=== PATIENT | female | born 1995 | race Caucasian/White ===

== ENCOUNTER 2017-08-29 21:51 | Emergency (ER) | payer SELFPAY | END 2017-08-29 22:15 | disposition left against medical advice (07) | LOC: ER 22:15 | DX: A64 Unspecified sexually transmitted disease (principal); Z53.21 Procedure and treatment not carried out due to patient leaving prior to being seen by health care provider ==

== ENCOUNTER 2019-04-18 15:59 | Emergency (ER) | payer OTHER ==
[~2019-04-18] VITALS: Ht 157.5 cm; Wt 54.0 kg
--- NOTE | 2019-04-18 16:25 | PHYS DOC ---
Past Medical History Past Medical History: No Pertinent History Smoking: Cigarettes Adult General Chief Complaint Chief Complaint: ABDOMINAL PAIN IN HPI HPI Patient is a previously healthy, 23-year-old female, 3, para 1, aborta 1, resolved he was 03/06/19, who presents to the emergency department for evaluation. She states the past 2-3 days she has had some lower abdominal cramping. She took a positive test at home about one week ago, but has not yet seen a physician. However, she has a scheduled appointment coming up next Thursday with an FORMS BUILDER here. She states she developed some abdominal cramping and presents to the emergency department for evaluation of this. She has had no vaginal bleeding or discharge, dizziness, lightheadedness, or urinary symptoms there are no alleviating or exacerbating factors to her symptoms. She reports her blood type is O-. Review of Systems Review of Systems Constitutional: Denies fever or chills [] Eyes: Denies change in visual acuity, redness, or eye pain [] HENT: Denies nasal congestion or sore throat [] Respiratory: Denies cough or shortness of breath [] Cardiovascular: The patient denies any shortness of breath, chest pain, palpitations, or orthopnea [] GI: Denies nausea, vomiting, bloody stools or diarrhea [] : Denies dysuria or hematuria [] Musculoskeletal: Denies back pain or joint pain [] Integument: Denies rash or skin lesions [] Neurologic: Denies headache, focal weakness or sensory changes [] Endocrine: Denies polyuria or polydipsia [] All other systems were reviewed and found to be within normal limits, except as documented in this note. Allergies Allergies Allergies Coded Allergies Type Severity Reaction Last Updated Verified Latex, Natural Rubber Allergy Unknown 04/18/19 Yes amoxicillin Allergy Unknown 04/18/19 Yes clavulanic acid Allergy Unknown 04/18/19 Yes shellfish derived Allergy Unknown 04/18/19 Yes Physical Exam Physical Exam PHYSICAL EXAM: CONSTITUTIONAL: Well developed, well nourished HEAD: normocephalic, atraumatic EENT: PERRL, EOMI. Conjunctivae normal color, sclerae non-icteric; moist mucous membranes. NECK: Supple, non-tender; no meningismus. LUNGS: Lungs CTA, breathing even and unlabored. Normal air movement. HEART: Regular rate and rhythm, no murmur CHEST: No deformity; non-tender ABDOMEN: The abdomen is soft, there is very mild suprapubic tenderness to palpa tion, the remainder the abdomen is soft and non-tender, no masses or bruits. EXTREM: Normal ROM; no deformity, no calf tenderness. Normal pulses palpable in all extremities. There is no pedal edema. SKIN: No rash; no diaphoresis NEURO: Alert; normal speech and cognition; CN's grossly intact; strength grossly intact without focal deficit. BACK: No CVA TTP. PELVIC EXAM: Normal external genitalia. There is a trace amount of clear white vaginal discharge, the cervix otherwise appears unremarkable, there is no bleeding, the cervix is closed. There is no definite cervical motion tenderness or focal adnexal tenderness. Exam was performed in the presence of the patient's nurse, Haley. Current Patient Data Vital Signs Vital Signs Date Time Temp Pulse Resp B/P (MAP) Pulse Ox O2 Delivery O2 Flow Rate FiO2 04/18/19 17:13 103 109/70 (83) 99 Room Air 04/18/19 16:05 98.2 17 98.2 Lab Values Laboratory Tests Test 04/18/19 16:30 04/18/19 17:19 White Blood Count 11.6 x10^3/uL (4.0-11.0) H Red Blood Count 4.64 x10^6/uL (3.50-5.40) Hemoglobin 14.9 g/dL (12.0-15.5) Hematocrit 43.5 % (36.0-47.0) Mean Corpuscular Volume 94 fL (79-100) Mean Corpuscular Hemoglobin 32 pg (25-35) Mean Corpuscular Hemoglobin Concent 34 g/dL (31-37) Red Cell Distribution Width 12.5 % (11.5-14.5) Platelet Count 290 x10^3/uL (140-400) Neutrophils (%) (Auto) 81 % (31-73) H Lymphocytes (%) (Auto) 13 % (24-48) L Monocytes (%) (Auto) 5 % (0-9) Eosinophils (%) (Auto) 0 % (0-3) Basophils (%) (Auto) 0 % (0-3) Neutrophils # (Auto) 9.4 x10^3/uL (1.8-7.7) H Lymphocytes # (Auto) 1.5 x10^3/uL (1.0-4.8) Monocytes # (Auto) 0.6 x10^3/uL (0.0-1.1) Eosinophils # (Auto) 0.0 x10^3/uL (0.0-0.7) Basophils # (Auto) 0.0 x10^3/uL (0.0-0.2) Maternal Serum HCG Beta Subunit 2189 mIU/mL (0-5) H Sodium Level 140 mmol/L (136-145) Potassium Level 3.8 mmol/L (3.5-5.1) Chloride Level 104 mmol/L (98-107) Carbon Dioxide Level 26 mmol/L (21-32) Anion Gap 10 (6-14) Blood Urea Nitrogen 7 mg/dL (7-20) Creatinine 0.6 mg/dL (0.6-1.0) Estimated GFR (Cockcroft-Gault) 126.2 BUN/Creatinine Ratio 12 (6-20) Glucose Level 100 mg/dL (70-99) H Calcium Level 9.4 mg/dL (8.5-10.1) Total Bilirubin 0.6 mg/dL (0.2-1.0) Aspartate Amino Transferase (AST) 19 U/L (15-37) Alanine Aminotransferase (ALT) 18 U/L (14-59) Alkaline Phosphatase 68 U/L (46-116) Total Protein 8.2 g/dL (6.4-8.2) Albumin 4.5 g/dL (3.4-5.0) Albumin/Globulin Ratio 1.2 (1.0-1.7) POC Urine HCG, Qualitative Hcg positive (Negative) Laboratory Tests 04/18/19 16:30 Laboratory Tests 04/18/19 16:30 Microbiology 04/18/19 Wet Prep - Final, Complete EKG EKG [] Radiology/Procedures Radiology/Procedures PROCEDURE: OB <14 WKS W/TV Exam: Ultrasound OB less than 14 weeks Indication: Pelvic pain Technique: Real-time grayscale and color Doppler images of the pelvis were obtained by the department rope coiling machine operator. Comparisons: None FINDINGS: Uterus measures 8.0 x 5.2 x 5.0 cm. Endometrium measures 6 mm in thickness. Right ovary measures 3.1 x 2.2 x 1.6 cm. Left ovary measures 3.4 x 2.0 x 2.0 cm Vascular flow noted within the ovaries bilaterally. Small amount of free fluid noted within the cul-de-sac. IMPRESSION: 1. No gestational sac, yolk sac or pole identified. Differential considerations include an early IUP, failed IUP or nonvisualized ectopic . 2. Small amount of free fluid noted in the pelvis.[] Course & Med Decision Making Course & Med Decision Making Pertinent Labs and Imaging studies reviewed. (See chart for details) [] 5:45 PM: The patient's condition remains stable. I discussed the case with Dr. Zhu, FORMS BUILDER, there is concern for ectopic , given the lack of an intrauterine , and the patient's beta hCG greater than 2000. Dr. Zhu was agreeable to come see the patient in the emergency department, but the patient states that she needed to go rock picker her child and was unable to stay in the emergency department. I discussed the potential Life-threatening nature of the patient's condition, if not properly diagnosed or treated, and the patient expressed understanding but needed to leave immediately. I did stress the importance of returning to the emergency department for new or worsening symptoms, development of increasing pain, dizziness, lightheadedness, vaginal bleeding, or other concerns. The patient states she has an FORMS BUILDER appointment scheduled for 2 days from now. Dragon Disclaimer Dragon Disclaimer This electronic medical record was generated, in whole or in part, using a voice recognition dictation system. Departure Departure Impression: Primary Impression: Abdominal pain affecting Disposition: 07 AGAINST MEDICAL ADVICE Condition: GUARDED Referrals: VLADIMIR ZHU MD Patient Instructions: Ectopic , Ruptured Ectopic Additional Instructions: Return to medical care for any new or worsening symptoms, development of increa sing pain, dizziness, lightheadedness, vaginal bleeding, or any other new or concerning symptoms. MARIELA ALFARO MD Apr 18, 2019 16:25
[2019-04-18 16:41] LABS: BASO % 0 % (0-3); EOS % 0 % (0-3); HEMATOCRIT 43.5 % (36.0-47.0); HEMOGLOBIN 14.9 g/dL (12.0-15.5); LYMPH # 1.5 x10^3/uL (1.0-4.8); LYMPH % 13 % (24-48); MEAN CORPUSCULAR HEMOGLOBIN 32 pg (25-35); MEAN CORPUSCULAR HGB CONC 34 g/dL (31-37); MEAN CORPUSCULAR VOLUME 94 fL (79-100); MONO # 0.6 x10^3/uL (0.0-1.1); MONO % 5 % (0-9); NEUT # 9.4 x10^3/uL (1.8-7.7); NEUT % 81 % (31-73); PLATELET COUNT 290 x10^3/uL (140-400); RED BLOOD COUNT 4.64 x10^6/uL (3.50-5.40); RED CELL DISTRIBUTION WIDTH 12.5 % (11.5-14.5); WHITE BLOOD COUNT 11.6 x10^3/uL (4.0-11.0)
[2019-04-18 16:48] LABS: CALCIUM 9.4 mg/dL (8.5-10.1); CREATININE 0.6 mg/dL (0.6-1.0); GFR 126.2; POTASSIUM 3.8 mmol/L (3.5-5.1)
[2019-04-18 16:54] LABS: ALBUMIN 4.5 g/dL (3.4-5.0); ALBUMIN/GLOBULIN RATIO 1.2 (1.0-1.7); TOTAL BILIRUBIN 0.6 mg/dL (0.2-1.0); TOTAL PROTEIN 8.2 g/dL (6.4-8.2)
[2019-04-18 17:13] VITALS: BP 109/70
--- NOTE | 2019-04-18 17:15 | RAD ---
Exam: Ultrasound OB less than 14 weeks Indication: Pelvic pain Technique: Real-time grayscale and color Doppler images of the pelvis were obtained by the department form setter metal road forms. Comparisons: None FINDINGS: Uterus measures 8.0 x 5.2 x 5.0 cm. Endometrium measures 6 mm in thickness. Right ovary measures 3.1 x 2.2 x 1.6 cm. Left ovary measures 3.4 x 2.0 x 2.0 cm Vascular flow noted within the ovaries bilaterally. Small amount of free fluid noted within the cul-de-sac. IMPRESSION: 1. No gestational sac, yolk sac or pole identified. Differential considerations include an early IUP, failed IUP or nonvisualized ectopic . 2. Small amount of free fluid noted in the pelvis. Electronically signed by: Sandi Garrett MD (04/18/2019 5:12 PM) [facility]
[2019-04-18 17:26] LABS: BILIRUBIN,URINE NEGATIVE (NEG); CLARITY,URINE CLOUDY; COLOR,URINE YELLOW; NITRITE,URINE NEGATIVE (NEG); PH,URINE 8.5; PROTEIN,URINE NEGATIVE (NEG-TRACE)
[2019-04-18 17:49] LABS: SQUAMOUS EPITHELIAL CELL,UR FEW /LPF
[2019-04-18 17:50] LABS: BACTERIA,URINE 0 /HPF (0-FEW); RBC,URINE OCC /HPF (0-2)
[2019-04-20 19:09] LABS: GC PROBE Negative (Negative)
== END 2019-04-18 17:47 | disposition left against medical advice (07) ==
LOC: ER 15:59
DX: O26.891 Other specified pregnancy related conditions, first trimester (principal); R10.30 Lower abdominal pain, unspecified; O99.331 Smoking (tobacco) complicating pregnancy, first trimester; F17.210 Nicotine dependence, cigarettes, uncomplicated; Z3A.00 Weeks of gestation of pregnancy not specified; Z88.1 Allergy status to other antibiotic agents; Z91.040 Latex allergy status; Z91.013 Allergy to seafood
CPT/HCPCS: 36415; 76801; 76817; 80053; 81001; 81025; 84702; 85025; 86900; 86901; 87491; 87591; 99285; Q0111

== ENCOUNTER 2019-06-05 11:24 | Emergency (ER) | payer OTHER ==
[~2019-06-05] VITALS: Ht 157.5 cm; Wt 52.2 kg
[2019-06-05] MEDS ORDERED: IV NORMAL SALINE 1000ML BAG 1,000 ML IV ONE (12:00)
--- NOTE | 2019-06-05 12:06 | PHYS DOC ---
Past Medical History Past Medical History: No Pertinent History Past Surgical History: Other Additional Past Surgical Histo: D&C Smoking Status: Current Every Day Smoker Alcohol Use: None Adult General Chief Complaint Chief Complaint: VAGINAL BLEEDING [facility] Patient is a 23 year old female who presents with abdominal pain, spot of blood. Reports she is . Patient reports she had noticed some small pink discharge from her vagina, only when wiping after urination for the last 2 days. States that it has been about the same, has not been worsening, however she has noticed that seem to get a little bit darker each day. States no bleeding to any pads, only bleeding when she is urinating or wiping. Denies any blood clots. States she had been seen here April 18, had ultrasound at that time which was inconclusive, was supposed to follow-up with Dr. Webb, but missed her appointment has not had any follow-ups since that time. Patient is G3, , reports her blood type is O-, states the discomfort in her abdomen is mostly a burning feeling, denies any burning with urination, denies any urinary frequency, denies any additional vaginal discharge all the last moment of pinkish to dark blood she notices after wiping, states she thinks her last menstrual cycle was then late February Review of Systems Review of Systems Constitutional: Denies fever or chills [] Respiratory: Denies cough or shortness of breath [] Cardiovascular: No additional information not addressed in HPI, [] GI: Denies abdominal pain, nausea, vomiting, bloody stools or diarrhea, does report she feels some burning in her lower abdomen patient [] : Denies dysuria or hematuria does report blood noted on tissue after wiping [] Musculoskeletal: Denies back pain or joint pain [] Integument: Denies rash or skin lesions [] Neurologic: Denies headache, focal weakness or sensory changes [] Endocrine: Denies polyuria or polydipsia [] All other systems were reviewed and found to be within normal limits, except as documented in this note. Current Medications Current Medications Current Medications Medications (Trade) Dose Ordered Sig/Cisco Start Time Stop Time Status Last Admin Dose Admin Sodium Chloride 1,000 ml @ 1,000 mls/hr 1X ONCE 06/05/19 12:00 06/05/19 12:59 DC 06/05/19 12:00 1,000 MLS/HR Allergies Allergies Allergies Coded Allergies Type Severity Reaction Last Updated Verified Latex, Natural Rubber Allergy Unknown 04/18/19 Yes amoxicillin Allergy Unknown 04/18/19 Yes clavulanic acid Allergy Unknown 04/18/19 Yes shellfish derived Allergy Unknown 04/18/19 Yes Physical Exam Physical Exam Constitutional: Well developed, slender but well nourished, no acute distress, non-toxic appearance. [] HENT: Normocephalic, atraumatic, oropharynx moist, no oral exudates, nose normal. [] Eyes: PERRLA, EOMI, conjunctiva normal, no discharge. [] Neck: Normal range of motion, no tenderness, supple, no stridor. [] Cardiovascular:Heart rate regular rhythm, tachycardic at 120, no murmur [] Lungs & Thorax: Bilateral breath sounds clear to auscultation [] Abdomen: Bowel sounds normal, soft, no tenderness, no masses, no pulsatile m asses. [] Skin: Warm, dry, no erythema, no rash. [] Back: No tenderness, no CVA tenderness. [] Extremities: No tenderness, no cyanosis, no clubbing, ROM intact, no edema. [] Neurologic: Alert and oriented X 3, normal motor function, normal sensory function, no focal deficits noted. [] Psychologic: Affect normal, judgement normal, mood normal. [] Current Patient Data Vital Signs Vital Signs Date Time Temp Pulse Resp B/P (MAP) Pulse Ox O2 Delivery O2 Flow Rate FiO2 06/05/19 12:02 98.2 110 18 154/84 (107) 99 Room Air 98.2 Lab Values Laboratory Tests Test 06/05/19 11:56 06/05/19 12:00 06/05/19 12:22 06/05/19 13:00 Urine Collection Type Unknown Urine Color Yellow Urine Clarity Clear Urine pH 8.0 (<5.0-8.0) Urine Specific [place] 1.015 (1.000-1.030) Urine Protein Negative mg/dL (NEG-TRACE) Urine Glucose (UA) Negative mg/dL (NEG) Urine Ketones (Stick) Negative mg/dL (NEG) Urine Blood Moderate (NEG) Urine Nitrite Negative (NEG) Urine Bilirubin Negative (NEG) Urine Urobilinogen Dipstick 0.2 mg/dL (0.2 mg/dL) Urine Leukocyte Esterase Negative (NEG) Urine RBC Occ /HPF (0-2) Urine WBC 1-4 /HPF (0-4) Urine Squamous Epithelial Cells Many /LPF Urine Bacteria Few /HPF (0-FEW) POC Urine HCG, Qualitative Hcg positive (Negative) White Blood Count 10.7 x10^3/uL (4.0-11.0) Red Blood Count 4.75 x10^6/uL (3.50-5.40) Hemoglobin 15.6 g/dL (12.0-15.5) H Hematocrit 45.1 % (36.0-47.0) Mean Corpuscular Volume 95 fL (79-100) Mean Corpuscular Hemoglobin 33 pg (25-35) Mean Corpuscular Hemoglobin Concent 35 g/dL (31-37) Red Cell Distribution Width 12.9 % (11.5-14.5) Platelet Count 260 x10^3/uL (140-400) Neutrophils (%) (Auto) 80 % (31-73) H Lymphocytes (%) (Auto) 14 % (24-48) L Monocytes (%) (Auto) 5 % (0-9) Eosinophils (%) (Auto) 1 % (0-3) Basophils (%) (Auto) 1 % (0-3) Neutrophils # (Auto) 8.6 x10^3/uL (1.8-7.7) H Lymphocytes # (Auto) 1.5 x10^3/uL (1.0-4.8) Monocytes # (Auto) 0.5 x10^3/uL (0.0-1.1) Eosinophils # (Auto) 0.1 x10^3/uL (0.0-0.7) Basophils # (Auto) 0.1 x10^3/uL (0.0-0.2) Lactic Acid Level 1.2 mmol/L (0.4-2.0) Sodium Level 139 mmol/L (136-145) Potassium Level 3.9 mmol/L (3.5-5.1) Chloride Level 105 mmol/L (98-107) Carbon Dioxide Level 22 mmol/L (21-32) Anion Gap 12 (6-14) Blood Urea Nitrogen 5 mg/dL (7-20) L Creatinine 0.4 mg/dL (0.6-1.0) L Estimated GFR (Cockcroft-Gault) 201.5 BUN/Creatinine Ratio 13 (6-20) Glucose Level 89 mg/dL (70-99) Calcium Level 8.5 mg/dL (8.5-10.1) Magnesium Level 1.9 mg/dL (1.8-2.4) Total Bilirubin 0.4 mg/dL (0.2-1.0) Aspartate Amino Transferase (AST) 16 U/L (15-37) Alanine Aminotransferase (ALT) 22 U/L (14-59) Alkaline Phosphatase 59 U/L (46-116) Total Protein 6.5 g/dL (6.4-8.2) Albumin 3.8 g/dL (3.4-5.0) Albumin/Globulin Ratio 1.4 (1.0-1.7) Laboratory Tests 06/05/19 12:22 Laboratory Tests 06/05/19 13:00 EKG EKG [] Radiology/Procedures Radiology/Procedures []HISTORY: 23-year-old female with vaginal bleeding, . FINDINGS: Transabdominal sonography demonstrates anteverted uterus measuring 10.5 x 4.9 x 7.4 cm. There is a posterior intrauterine gestational sac which is somewhat collapsed with a regular chorion, no pole evident. No subchronic hemorrhage evident. Ovaries not visualized. Transvaginal sonography again demonstrates a posterior intrauterine irregular gestational sac with partial collapse, there is no pole, there is an abnormally enlarged yolk sac with a diameter 14 mm. The mean gestational sac diameter is 2.08 cm estimating sonographic gestational age of 7 weeks 0 days and date of delivery January 22, 2020. This is discordant with the clinical gestational age of 13 weeks 0 days. There is a tiny volume of simple fluid at cul-de-sac. Cervix is normal. Right ovary measures 1.8 x 3.8 x 2.0 cm. Left ovary measures 2.3 x 3.4 2.2 cm. There are a few subcentimeter ovarian follicles. There is intact bilateral right blood flow. No ovarian or paraovarian masses. IMPRESSION: Abnormal intrauterine gestational sac with a collapsed irregular sac, enlarged yolk sac, and absence of a pole. Mean gestational sac diameter is 2.1 cm. Estimated sonographic gestational age is 7 weeks 0 days which is discordant with the clinical gestational age of 13 weeks 0 days. This combination of findings is concerning for an anembryonic gestation (aka blighted ovum). Electronically signed by: Garry Jaeger MD (06/05/2019 1:08 PM) [id number] Course & Med Decision Making Course & Med Decision Making Pertinent Labs and Imaging studies reviewed. (See chart for details) []@1400 -discussed with Dr. Santo, ELDERLY SITTER, advised patient needs to call office to make a follow-up and will have a D&C. Advised patient to findings. Omi Disclaimer Dragon Disclaimer This electronic medical record was generated, in whole or in part, using a voice recognition dictation system. Departure Departure Impression: Primary Impression: Blighted ovum Disposition: HOME, SELF-CARE Condition: STABLE Referrals: DAWIT MARTINEZ MD Patient Instructions: Blighted Ovum Additional Instructions: As we discussed, use pads to capture any bleeding. Call the OBGYN office tomorrow morning to set an appointment and determine when they are going to the D&C. Rest. Stay hydrated STAR POWELL APRN Jun 05, 2019 12:06
[2019-06-05 12:18] LABS: BILIRUBIN,URINE NEGATIVE (NEG); CLARITY,URINE CLEAR; COLOR,URINE YELLOW; NITRITE,URINE NEGATIVE (NEG); PROTEIN,URINE NEGATIVE (NEG-TRACE); UROBILINOGEN,URINE 0.2 mg/dL (0.2 mg/dL)
[2019-06-05 12:34] LABS: BACTERIA,URINE FEW /HPF (0-FEW); RBC,URINE OCC /HPF (0-2); SQUAMOUS EPITHELIAL CELL,UR MANY /LPF
[2019-06-05 12:36] LABS: BASO # 0.1 x10^3/uL (0.0-0.2); BASO % 1 % (0-3); EOS # 0.1 x10^3/uL (0.0-0.7); EOS % 1 % (0-3); HEMATOCRIT 45.1 % (36.0-47.0); HEMOGLOBIN 15.6 g/dL (12.0-15.5); LYMPH # 1.5 x10^3/uL (1.0-4.8); LYMPH % 14 % (24-48); MEAN CORPUSCULAR HEMOGLOBIN 33 pg (25-35); MEAN CORPUSCULAR HGB CONC 35 g/dL (31-37); MEAN CORPUSCULAR VOLUME 95 fL (79-100); MONO # 0.5 x10^3/uL (0.0-1.1); MONO % 5 % (0-9); NEUT # 8.6 x10^3/uL (1.8-7.7); NEUT % 80 % (31-73); PLATELET COUNT 260 x10^3/uL (140-400); RED BLOOD COUNT 4.75 x10^6/uL (3.50-5.40); RED CELL DISTRIBUTION WIDTH 12.9 % (11.5-14.5); WHITE BLOOD COUNT 10.7 x10^3/uL (4.0-11.0)
--- NOTE | 2019-06-05 13:11 | RAD ---
Obstetrical ultrasound less than 14 weeks HISTORY: 23-year-old female with vaginal bleeding, . FINDINGS: Transabdominal sonography demonstrates anteverted uterus measuring 10.5 x 4.9 x 7.4 cm. There is a posterior intrauterine gestational sac which is somewhat collapsed with a regular chorion, no pole evident. No subchronic hemorrhage evident. Ovaries not visualized. Transvaginal sonography again demonstrates a posterior intrauterine irregular gestational sac with partial collapse, there is no pole, there is an abnormally enlarged yolk sac with a diameter 14 mm. The mean gestational sac diameter is 2.08 cm estimating sonographic gestational age of 7 weeks 0 days and date of delivery January 22, 2020. This is discordant with the clinical gestational age of 13 weeks 0 days. There is a tiny volume of simple fluid at cul-de-sac. Cervix is normal. Right ovary measures 1.8 x 3.8 x 2.0 cm. Left ovary measures 2.3 x 3.4 2.2 cm. There are a few subcentimeter ovarian follicles. There is intact bilateral right blood flow. No ovarian or paraovarian masses. IMPRESSION: Abnormal intrauterine gestational sac with a collapsed irregular sac, enlarged yolk sac, and absence of a pole. Mean gestational sac diameter is 2.1 cm. Estimated sonographic gestational age is 7 weeks 0 days which is discordant with the clinical gestational age of 13 weeks 0 days. This combination of findings is concerning for an anembryonic gestation (aka blighted ovum). Electronically signed by: Garry Jaeger MD (06/05/2019 1:08 PM) [id number]
[2019-06-05 13:44] LABS: CALCIUM 8.5 mg/dL (8.5-10.1); CREATININE 0.4 mg/dL (0.6-1.0); GFR 201.5; POTASSIUM 3.9 mmol/L (3.5-5.1)
[2019-06-05 13:49] LABS: ALBUMIN 3.8 g/dL (3.4-5.0); ALBUMIN/GLOBULIN RATIO 1.4 (1.0-1.7); MAGNESIUM 1.9 mg/dL (1.8-2.4); TOTAL BILIRUBIN 0.4 mg/dL (0.2-1.0); TOTAL PROTEIN 6.5 g/dL (6.4-8.2)
[2019-06-05 14:00] VITALS: BP 121/68
== END 2019-06-05 14:20 | disposition home or self-care (01) ==
LOC: ER 11:24
DX: O02.0 Blighted ovum and nonhydatidiform mole (principal); O08.9 Unspecified complication following an ectopic and molar pregnancy; O46.91 Antepartum hemorrhage, unspecified, first trimester; O99.321 Drug use complicating pregnancy, first trimester; Z3A.01 Less than 8 weeks gestation of pregnancy; R10.9 Unspecified abdominal pain; Z88.1 Allergy status to other antibiotic agents; Z91.040 Latex allergy status; Z91.013 Allergy to seafood; Z98.890 Other specified postprocedural states
CPT/HCPCS: 36415; 76801; 76817; 80053; 81001; 81025; 83605; 83735; 84702; 85025; 99285; J7030

== ENCOUNTER 2021-06-03 19:56 | Emergency (ER) | payer MEDICAID, OTHER ==
[~2021-06-03] VITALS: Ht 157.5 cm; Wt 62.5 kg
[2021-06-03 22:18] LABS: BILIRUBIN,URINE NEGATIVE (NEG); CLARITY,URINE CLEAR; COLOR,URINE YELLOW; NITRITE,URINE NEGATIVE (NEG); PROTEIN,URINE NEGATIVE (NEG-TRACE); UROBILINOGEN,URINE 0.2 mg/dL (0.2 mg/dL)
[2021-06-03 22:21] LABS: AMORPHOUS SEDIMENT,UR PRESENT /HPF; BACTERIA,URINE FEW /HPF (0-FEW); RBC,URINE OCC /HPF (0-2)
[2021-06-03 22:35] LABS: BASO # 0.1 x10^3/uL (0.0-0.2); BASO % 1 % (0-3); EOS # 0.1 x10^3/uL (0.0-0.7); EOS % 1 % (0-3); HEMATOCRIT 37.5 % (36.0-47.0); LYMPH # 2.6 x10^3/uL (1.0-4.8); LYMPH % 22 % (24-48); MEAN CORPUSCULAR HEMOGLOBIN 32 pg (25-35); MEAN CORPUSCULAR HGB CONC 35 g/dL (31-37); MEAN CORPUSCULAR VOLUME 91 fL (79-100); MONO # 0.6 x10^3/uL (0.0-1.1); MONO % 5 % (0-9); NEUT # 8.3 x10^3/uL (1.8-7.7); NEUT % 71 % (31-73); PLATELET COUNT 266 x10^3/uL (140-400); RED CELL DISTRIBUTION WIDTH 12.6 % (11.5-14.5); WHITE BLOOD COUNT 11.7 x10^3/uL (4.0-11.0)
--- NOTE | 2021-06-03 23:06 | RAD ---
Exam: Ultrasound OB less than 14 weeks Indication: Vaginal bleeding and Technique: Real-time grayscale and color Doppler images of the pelvis were obtained by the department hearing care practitioner. Comparisons: None FINDINGS: Uterus measures 11.0 x 8.3 x 7.9 cm. Within the endometrium there is a gestational sac with internal pole. Ursina-rump length measures 5.94 cm corresponding to 12 weeks 3 days gestation. hear t rate is measured at 165 bpm. Estimated due date by LMP: 12/09/2021 Estimated due date by ultrasound: 12/13/2021 Right ovary measures 2.0 x 2.0 x 1.7 cm. Vascular flow identified in the right ovary. Left ovary is not identified. No free fluid identified in the pelvis. IMPRESSION: 1. Single live intrauterine gestation of 13 weeks 0 days by LMP with concordant ultrasound. 2. Dedicated survey is recommended at 18-20 weeks gestation. Electronically signed by: Sandi Garrett MD (06/03/2021 11:04 PM) [email or web address]
--- NOTE | 2021-06-03 23:49 | PHYS DOC ---
Past Medical History Past Medical History: No Pertinent History Past Surgical History: No Surgical History Additional Past Surgical Histo: D&C Smoking Status: Current Every Day Smoker Alcohol Use: None General Adult EDM: Chief Complaint: VAGINAL BLEEDING HPI: HPI: Patient is a 25 year old female 4 para 1, 2 miscarriages currently 13 weeks per her statement presenting to the ED today with c/o vaginal bleeding in that began prior to coming to the ED. She states she wiped herself and noted trace amount of pink blood from her vagina. Denies any abdominal pain, denies any back pain. She states she has been following up with SOLAR DESIGN ENGINEER Review of Systems: Review of Systems: Constitutional: Denies fever or chills. [] Eyes: Denies change in visual acuity. [] HENT: Denies nasal congestion or sore throat. [] Respiratory: Denies cough or shortness of breath. [] Cardiovascular: Denies chest pain or edema. [] GI: Reports vaginal bleeding in . Denies abdominal pain, nausea, vomiting, bloody stools or diarrhea. [] : Denies dysuria. [] Musculoskeletal: Denies back pain or joint pain. [] Integument: Denies rash. [] Neurologic: Denies headache, focal weakness or sensory changes. [] Psychiatric: Denies depression or anxiety. [] Heart Score: C/O Chest Pain: N/A Risk Factors: Risk Factors: DM, Current or recent (<one month) smoker, HTN, HLP, family history of CAD, obesity. Risk Scores: Score 0 - 3: 2.5% MACE over next 6 weeks - Discharge Home Score 4 - 6: 20.3% MACE over next 6 weeks - Admit for Clinical Observation Score 7 - 10: 72.7% MACE over next 6 weeks - Early Invasive Strategies Allergies: Allergies: Allergies Coded Allergies Type Severity Reaction Last Updated Verified Latex, Natural Rubber Allergy Unknown 04/18/19 Yes amoxicillin Allergy Unknown 04/18/19 Yes clavulanic acid Allergy Unknown 04/18/19 Yes shellfish derived Allergy Unknown 04/18/19 Yes Physical Exam: PE: Constitutional: Well developed, well nourished, no acute distress, non-toxic appearance. [] HENT: Normocephalic, atraumatic, bilateral external ears normal, oropharynx moist, no oral exudates, nose normal. [] Eyes: PERRLA, EOMI, conjunctiva normal, no discharge. [] Neck: Normal range of motion, no tenderness, supple, no stridor. [] Cardiovascular:Heart rate regular rhythm, no murmur [] Lungs & Thorax: Bilateral breath sounds clear to auscultation [] Abdomen: Bowel sounds normal, soft, no tenderness, no masses, no pulsatile masses. [] Pelvic exam External pelvic appears normal, cervix is visualized, closed, no CMT, no adnexal tenderness, trace amount of pink blood in the vaginal vault Skin: Warm, dry, no erythema, no rash. [] Back: No tenderness, no CVA tenderness. [] Extremities: No tenderness, no cyanosis, no clubbing, ROM intact, no edema. [] Neurologic: Alert and oriented X 3, normal motor function, normal sensory function, no focal deficits noted. [] Psychologic: Very anxious Current Patient Data: Labs: Laboratory Tests Test 06/03/21 21:45 06/03/21 22:27 Urine Collection Type Unknown Urine Color Yellow Urine Clarity Clear Urine pH 6.0 (<5.0-8.0) Urine Specific [place] 1.025 (1.000-1.030) Urine Protein Negative mg/dL (NEG-TRACE) Urine Glucose (UA) Negative mg/dL (NEG) Urine Ketones (Stick) Negative mg/dL (NEG) Urine Blood Small (NEG) Urine Nitrite Negative (NEG) Urine Bilirubin Negative (NEG) Urine Urobilinogen Dipstick 0.2 mg/dL (0.2 mg/dL) Urine Leukocyte Esterase Trace (NEG) Urine RBC Occ /HPF (0-2) Urine WBC 1-4 /HPF (0-4) Urine Squamous Epithelial Cells Mod /LPF Urine Amorphous Sediment Present /HPF Urine Bacteria Few /HPF (0-FEW) Urine Mucus Mod /LPF White Blood Count 11.7 x10^3/uL (4.0-11.0) H Red Blood Count 4.10 x10^6/uL (3.50-5.40) Hemoglobin 13.0 g/dL (12.0-15.5) Hematocrit 37.5 % (36.0-47.0) Mean Corpuscular Volume 91 fL (79-100) Mean Corpuscular Hemoglobin 32 pg (25-35) Mean Corpuscular Hemoglobin Concent 35 g/dL (31-37) Red Cell Distribution Width 12.6 % (11.5-14.5) Platelet Count 266 x10^3/uL (140-400) Neutrophils (%) (Auto) 71 % (31-73) Lymphocytes (%) (Auto) 22 % (24-48) L Monocytes (%) (Auto) 5 % (0-9) Eosinophils (%) (Auto) 1 % (0-3) Basophils (%) (Auto) 1 % (0-3) Neutrophils # (Auto) 8.3 x10^3/uL (1.8-7.7) H Lymphocytes # (Auto) 2.6 x10^3/uL (1.0-4.8) Monocytes # (Auto) 0.6 x10^3/uL (0.0-1.1) Eosinophils # (Auto) 0.1 x10^3/uL (0.0-0.7) Basophils # (Auto) 0.1 x10^3/uL (0.0-0.2) Maternal Serum HCG Beta Subunit 22310 mIU/mL (0-5) H Laboratory Tests 06/03/21 22:27 Microbiology 06/03/21 Wet Prep - Final, Complete Vital Signs: Vital Signs Date Time Temp Pulse Resp B/P (MAP) Pulse Ox O2 Delivery O2 Flow Rate FiO2 06/03/21 21:58 98.2 92 18 154/74 (100) 100 Room Air 98.2 EKG: EKG: [] Radiology/Procedures: Radiology/Procedures: []PROCEDURE: OB < 14 WKS Exam: Ultrasound OB less than 14 weeks Indication: Vaginal bleeding and Technique: Real-time grayscale and color Doppler images of the pelvis were obtained by the department procurement services manager. Comparisons: None FINDINGS: Uterus measures 11.0 x 8.3 x 7.9 cm. Within the endometrium there is a gestational sac with internal pole. Kenneth-rump length measures 5.94 cm corresponding to 12 weeks 3 days gestation. heart rate is measured at 165 bpm. Estimated due date by LMP: 12/09/2021 Estimated due date by ultrasound: 12/13/2021 Right ovary measures 2.0 x 2.0 x 1.7 cm. Vascular flow identified in the right ovary. Left ovary is not identified. No free fluid identified in the pelvis. IMPRESSION: 1. Single live intrauterine gestation of 13 weeks 0 days by LMP with concordant ultrasound. 2. Dedicated survey is recommended at 18-20 weeks gestation. Electronically signed by: Amy Guo MD (06/03/2021 11:04 PM) [facility] DICTATED and SIGNED BY: AMY GUO MD DATE: 06/03/21 2388 Course & Med Decision Making: Course & Med Decision Making Pertinent Labs and Imaging studies reviewed. (See chart for details) This a 25-year-old female patient presenting to the ED today complaining of vaginal bleeding in that began today. Patient had trace amount of pink blood in her vaginal vault CBC with a WBC of 11.7, hemoglobin and hematocrit are normal. UA with trace amount of leukocytes-contaminated this, cells epithelium, wet prep noted for clue cells Beta hCG 74,249 OB ultrasound noted for single live intrauterine gestation of 13 weeks 0 days by LMP with concordant ultrasound. Patient's blood type is O-. Ordered RhoGam Will be given RhoGam then discharged home. Dragon Disclaimer: [employer] Disclaimer: This electronic medical record was generated, in whole or in part, using a voice recognition dictation system. Departure Departure Impression: Primary Impression: Threatened Additional Impressions: Need for rhogam due to Rh negative mother Bacterial vaginosis Disposition: 01 HOME / SELF CARE / HOMELESS Condition: STABLE Referrals: NO PCP (PCP) Please contact your SOLAR DESIGN ENGINEER tomorrow and set up a follow-up appointment Patient Instructions: Bacterial Vaginosis, [id number], Threatened Miscarriage, [id number] Additional Instructions: You were evaluated in the emergency room for vaginal bleeding in . Please do not do any strenuous activities, maintain pelvic rest including no sex until seen by SOLAR DESIGN ENGINEER and the bleeding has completely stopped. You also have bacterial vaginosis. Take the prescribed antibiotics until completed. Please follow-up with your SOLAR DESIGN ENGINEER as soon as you can. You got RhoGam in the ED today Scripts Metronidazole (METRONIDAZOLE) 500 Mg Tablet 1 TAB PO BID for 7 Days, #14 TAB 0 Refills Prov: BOOGIE WEN APRN 06/04/21 BOOIGE WEN APRN Jun 03, 2021 23:48
[2021-06-04] MEDS ORDERED: METR-34 PO (00:51)
[2021-06-04 01:20] VITALS: BP 154/74
[2021-06-04 01:54] VITALS: BP 145/75
[2021-06-05 18:11] LABS: GC PROBE Negative (Negative)
== END 2021-06-04 01:55 | disposition home or self-care (01) ==
LOC: ER 19:56
DX: O20.0 Threatened abortion (principal); N76.0 Acute vaginitis; B96.89 Other specified bacterial agents as the cause of diseases classified elsewhere; Z3A.13 13 weeks gestation of pregnancy; Z88.1 Allergy status to other antibiotic agents; Z91.040 Latex allergy status; Z88.8 Allergy status to other drugs, medicaments and biological substances; Z91.013 Allergy to seafood
CPT/HCPCS: 36415; 76801; 81001; 84702; 85025; 86850; 86900; 86901; 87086; 87491; 87591; 96372; 99285; J2790; Q0111

== ENCOUNTER 2021-06-23 12:14 | Emergency (ER) | payer MEDICAID ==
[~2021-06-23] VITALS: Ht 157.5 cm; Wt 62.7 kg
[~2021-06-23 12:14] MED LIST: METR-34 PO
[2021-06-23 13:53] LABS: BASO % 0 % (0-3); EOS # 0.1 x10^3/uL (0.0-0.7); EOS % 1 % (0-3); HEMATOCRIT 36.1 % (36.0-47.0); HEMOGLOBIN 12.8 g/dL (12.0-15.5); LYMPH # 1.5 x10^3/uL (1.0-4.8); LYMPH % 16 % (24-48); MEAN CORPUSCULAR HEMOGLOBIN 32 pg (25-35); MEAN CORPUSCULAR HGB CONC 35 g/dL (31-37); MEAN CORPUSCULAR VOLUME 91 fL (79-100); MONO # 0.4 x10^3/uL (0.0-1.1); MONO % 4 % (0-9); NEUT # 7.4 x10^3/uL (1.8-7.7); NEUT % 79 % (31-73); PLATELET COUNT 245 x10^3/uL (140-400); RED BLOOD COUNT 3.99 x10^6/uL (3.50-5.40); RED CELL DISTRIBUTION WIDTH 12.3 % (11.5-14.5); WHITE BLOOD COUNT 9.5 x10^3/uL (4.0-11.0)
[2021-06-23 15:17] LABS: CREATININE 0.5 mg/dL (0.6-1.0); GFR 152.9; POTASSIUM 3.8 mmol/L (3.5-5.1)
[2021-06-23 15:22] LABS: ALBUMIN 3.2 g/dL (3.4-5.0); ALBUMIN/GLOBULIN RATIO 0.9 (1.0-1.7); TOTAL BILIRUBIN 0.3 mg/dL (0.2-1.0); TOTAL PROTEIN 6.9 g/dL (6.4-8.2)
--- NOTE | 2021-06-23 16:07 | RAD ---
. US OB LIMITED Clinical Indication: Reason: Vaginal bleeding during , 16W PREG Comparison: Obstetric ultrasound less than 14 weeks, June 03, 2021. Technique: Multiple grayscale images, color Doppler, and M-mode images of the uterus are obtained. Findings: There is a single intrauterine gestation in breech presentation. The placenta is anterior in location without evidence of placenta previa. The amount of amniotic fluid appears appropriate. Cervical damien gth is approximately 3.2 cm. Biometrical data: BPD = 3 cm for 15 weeks 3 days. HC = 11.5 cm for 15 weeks 4 days. AC = 9.9 cm for 16 weeks 0 days. FL = 2 cm for 16 weeks 0 days. HC/AC ratio = 1.15. Overall, the estimated sonographic gestational age is 15 weeks and 5 days for an estimated date of d elivery of December 10, 2021. The estimated date of delivery provided by the last menstrual period i s December 09, 2021. Estimated weight is not listed. The estimated heart rate is 165 beats per minute. A complete anatomic survey is not performed. The maternal ovaries are not identified in the adnexa due to overlying bowel gas. Impression: Single live intrauterine gestation with estimated sonographic gestational age of 15 weeks and 5 days. Electronically signed by: Laci Orellana MD (06/23/2021 4:05 PM) [id number]
--- NOTE | 2021-06-23 16:15 | PHYS DOC ---
Past Medical History Past Medical History: No Pertinent History Additional Past Medical Histor: preeclapmsia Past Surgical History: No Surgical History Additional Past Surgical Histo: D&C Smoking Status: Current Every Day Smoker Alcohol Use: None General Adult EDM: Chief Complaint: VAGINAL BLEEDING HPI: HPI: Patient is a 25-year-old female presents emerged department complaining of seen blood-tinged vital remarkably toilet paper after wiping after urination this morning. Patient states this happened twice, no longer sees blood after wiping, denies vaginal bleeding. Denies lower abdominal pain or discomfort, denies pelvic cramping. Patient denies vaginal discharge. Patient denies nausea, vomiting, diarrhea or constipation. Patient denies seeing blood in her urine. Patient states she is 15 weeks 6 days , EDC December 09, 2021, 4 para 1, states she had a spontaneous at 8 weeks on #2, had a spontaneous at 4 weeks of #3, states #1 without vaginal bleeding but did have preeclampsia during her and now takes 81 mg baby aspirin twice daily during this current , has a 9-year-old son. Patient denies recent fever or chills. Patient reports she was given RhoGam injection during her last visit in the emergency department approximately 2 weeks ago. Review of Systems: Review of Systems: 14 body systems of review of systems have been reviewed. See HPI for pertinent positives and negative responses, otherwise all other systems are negative, nonpertinent or noncontributory. Constitutional: Negative except as outlined in HPI above. Skin: Negative except as outlined in HPI above. Eyes: Negative except as outlined in HPI above. HENT: Negative except as outlined in HPI above. Respiratory: Negative except as outlined in HPI above. Cardiovascular: Negative except as outlined in HPI above. GI: Negative except as outlined in HPI above. : Negative except as outlined in HPI above. Musculoskeletal: Negative except as outlined in HPI above. Integument: Negative except as outlined in HPI above. Neurologic: Negative except as outlined in HPI above. Endocrine: Negative except as outlined in HPI above. Lymphatic: Negative except as outlined in HPI above. Psychiatric: Negative except as outlined in HPI above. Heart Score: C/O Chest Pain: No Risk Factors: Risk Factors: DM, Current or recent (<one month) smoker, HTN, HLP, family history of CAD, obesity. Risk Scores: Score 0 - 3: 2.5% MACE over next 6 weeks - Discharge Home Score 4 - 6: 20.3% MACE over next 6 weeks - Admit for Clinical Observation Score 7 - 10: 72.7% MACE over next 6 weeks - Early Invasive Strategies Allergies: Allergies: Allergies Coded Allergies Type Severity Reaction Last Updated Verified Latex, Natural Rubber Allergy Unknown 04/18/19 Yes amoxicillin Allergy Unknown 04/18/19 Yes clavulanic acid Allergy Unknown 04/18/19 Yes shellfish derived Allergy Unknown 04/18/19 Yes Physical Exam: PE: Constitutional: Well developed, well nourished, no acute distress, non-toxic appearance. 25-year-old female in no apparent distress. HENT: Normocephalic, atraumatic. Eyes: Conjunctiva normal, no discharge. Neck: Normal range of motion. Cardiovascular: Distal cap refill less than 2 seconds, no cyanosis appreciated. Lungs & Thorax: Patient is in no respiratory distress, no adventitious lung sounds appreciated. Abdomen: Bowel sounds normal, soft, no tenderness, no masses, no pulsatile masses. No bruising or skin discoloration of the abdomen. Skin: Warm, dry, no erythema, no rash. Back: No tenderness, no CVA tenderness. Extremities: No tenderness, no cyanosis, no clubbing, ROM intact, no edema. Neurologic: Alert and oriented X 3, normal motor function, normal sensory function, no focal deficits noted. Psychologic: Affect normal, judgement normal, mood normal. : Pelvic examination performed with female ED nurse at bedside for drafter seismograph, no rashes or lesions to the external vaginal structures, the cervical os is closed, no discharge appreciated, vaginal structures and cervical os are pink, nonerythematous. Patient tolerated well. Current Patient Data: Labs: Laboratory Tests Test 06/23/21 13:20 06/23/21 13:30 White Blood Count 9.5 x10^3/uL (4.0-11.0) Red Blood Count 3.99 x10^6/uL (3.50-5.40) Hemoglobin 12.8 g/dL (12.0-15.5) Hematocrit 36.1 % (36.0-47.0) Mean Corpuscular Volume 91 fL (79-100) Mean Corpuscular Hemoglobin 32 pg (25-35) Mean Corpuscular Hemoglobin Concent 35 g/dL (31-37) Red Cell Distribution Width 12.3 % (11.5-14.5) Platelet Count 245 x10^3/uL (140-400) Neutrophils (%) (Auto) 79 % (31-73) H Lymphocytes (%) (Auto) 16 % (24-48) L Monocytes (%) (Auto) 4 % (0-9) Eosinophils (%) (Auto) 1 % (0-3) Basophils (%) (Auto) 0 % (0-3) Neutrophils # (Auto) 7.4 x10^3/uL (1.8-7.7) Lymphocytes # (Auto) 1.5 x10^3/uL (1.0-4.8) Monocytes # (Auto) 0.4 x10^3/uL (0.0-1.1) Eosinophils # (Auto) 0.1 x10^3/uL (0.0-0.7) Basophils # (Auto) 0.0 x10^3/uL (0.0-0.2) Maternal Serum HCG Beta Subunit 95065 mIU/mL (0-5) H Sodium Level 138 mmol/L (136-145) Potassium Level 3.8 mmol/L (3.5-5.1) Chloride Level 105 mmol/L (98-107) Carbon Dioxide Level 22 mmol/L (21-32) Anion Gap 11 (6-14) Blood Urea Nitrogen 5 mg/dL (7-20) L Creatinine 0.5 mg/dL (0.6-1.0) L Estimated GFR (Cockcroft-Gault) 152.9 BUN/Creatinine Ratio 10 (6-20) Glucose Level 89 mg/dL (70-99) Calcium Level 9.0 mg/dL (8.5-10.1) Total Bilirubin 0.3 mg/dL (0.2-1.0) Aspartate Amino Transferase (AST) 39 U/L (15-37) H Alanine Aminotransferase (ALT) 50 U/L (14-59) Alkaline Phosphatase 60 U/L (46-116) Total Protein 6.9 g/dL (6.4-8.2) Albumin 3.2 g/dL (3.4-5.0) L Albumin/Globulin Ratio 0.9 (1.0-1.7) L POC Urine HCG, Qualitative Hcg positive (Negative) Laboratory Tests 06/23/21 13:20 Laboratory Tests 06/23/21 13:20 Vital Signs: Vital Signs Date Time Temp Pulse Resp B/P (MAP) Pulse Ox O2 Delivery O2 Flow Rate FiO2 06/23/21 12:25 98.4 125 18 126/76 (93) 99 Room Air 98.4 EKG: EKG: [] Radiology/Procedures: Radiology/Procedures: REASON: Vaginal bleeding during , 16W PREG PROCEDURE: OB LIMITED . US OB LIMITED Clinical Indication: Reason: Vaginal bleeding during , 16W PREG Comparison: Obstetric ultrasound less than 14 weeks, June 03, 2021. Technique: Multiple grayscale images, color Doppler, and M-mode images of the uterus are obtained. Findings: There is a single intrauterine gestation in breech presentation. The placenta is anterior in location without evidence of placenta previa. The amount of amniotic fluid appears appropriate. Cervical length is approximately 3.2 cm. Biometrical data: BPD = 3 cm for 15 weeks 3 days. HC = 11.5 cm for 15 weeks 4 days. AC = 9.9 cm for 16 weeks 0 days. FL = 2 cm for 16 weeks 0 days. HC/AC ratio = 1.15. Overall, the estimated sonographic gestational age is 15 weeks and 5 days for an estimated date of delivery of December 10, 2021. The estimated date of delivery provided by the last menstrual period is December 09, 2021. Estimated weight is not listed. The estimated heart rate is 165 beats per minute. A complete anatomic survey is not performed. The maternal ovaries are not identified in the adnexa due to overlying bowel gas. Impression: Single live intrauterine gestation with estimated sonographic gestational age of 15 weeks and 5 days. Electronically signed by: Laci Orellana MD (06/23/2021 4:05 PM) [id number] Course & Med Decision Making: Course & Med Decision Making Head andPertinent Labs and Imaging studies reviewed. (See chart for details) 25-year-old female, vital signs reviewed, resents emergency department concerning seeing blood on tissue after wiping from urination 2 times this morning. Physical examination is unremarkable, there is no blood around the cervical os, suspicious for vaginal bleeding after sex. With patient's explanation of events will order OB ultrasound greater than 14 weeks, CBC, CMP, beta hCG quant, urine test, heart tones, urinalysis assay. CBC, CMP, unremarkable, the patient's pelvic exam was unremarkable, the OB ultrasound shows viable intrauterine with normal heart rate, the patient did have an initial tachycardic rate at triage however will heart rate throughout her stay in the emergency department, there were no supporting labs or vital signs or symptoms that would support preeclampsia. The patient urine was not completed in the lab, lab stating they need to have another sample to run. Discussed all findings with patient, discussed with patient will send additional urine sample to the lab and will call if treatment needed for urinary tract infection. Patient gave verbal understanding of this however patient states that she was diagnosed with bacterial vaginosis during her last visit but did not fill her medications. Discussed with patient will represcribe this medication, discussed risks versus benefits of treating bacterial vaginosis during , discussed with patient strict follow-up with OB specialist at her OB clinic, call tomorrow for an appointment, discussed return to ER precautions and concerns, patient gave verbal understanding of and is amenable to ED discharge planning. Patient states she will fill her prescription for bacterial vaginosis and take it as directed. The patient's urine is not infected, I called patient on telephone and spoke to her personally advising her she does not need to fill and take cephalexin medication. I did reiterate with patient to fill Flagyl medication and take as directed, patient gave verbal understanding of this and is agreeable to ED bhumi nningShree Braga Disclaimer: Omi Disclaimer: This electronic medical record was generated, in whole or in part, using a voice recognition dictation system. Departure Departure Impression: Primary Impression: Vaginal bleeding in patient after first trimester Disposition: 01 HOME / SELF CARE / HOMELESS Condition: GOOD Referrals: NO PCP (PCP) Patient Instructions: Vaginal Bleeding During , Second Trimester Additional Instructions: You were seen today in the emergency department for vaginal bleeding. A sonogram was performed today that did not show any concerning findings, you continue to have a healthy viable , your baby has a normal heart rate. Your bleeding has seemed to have stopped. I suspect your vaginal bleeding may be caused from having sex. This can happen during . Please refrain from sex and practice pelvic rest for now until you discuss this with your OB supervisor floor assembly at the OB clinic. Thank you for visiting our Emergency Department. It was a pleasure taking care of you today in the emergency department and we appreciate you trusting us with your care. If any additional problems come up don't hesitate to return to visit us. Please follow up with your primary care provider so they can plan additional care if needed and know about the problem that you had. If symptoms worsen come back to the Emergency Department. Any concerning symptoms that start such as chest pain, shortness of air, weakness or numbness on one side of the body, running high fevers or any other concerning symptoms return to the ER. You had indicated you did not feel your prescription for bacterial vaginosis that was given to you during your last visit. We have discussed the importance of treating bacterial vaginosis during , please get this filled and take as directed. Please call your OB clinic tomorrow to let them know of your ED visits at [facility] emergency department. Scripts Cephalexin (KEFLEX) 500 Mg Capsule 1 CAP PO QID for UTI for 7 Days, #28 CAP 0 Refills Prov: VLADIMIR PLUNKETT APRN 06/23/21 Metronidazole (METRONIDAZOLE) 500 Mg Tablet 1 TAB PO BID for BV for 7 Days, #14 TAB 0 Refills Prov: VLADIMIR PLUNKETT APRN 06/23/21 VLADIMIR PLUNKETT APRN Jun 23, 2021 16:15
[2021-06-23 16:40] VITALS: BP 120/71
[2021-06-23 16:48] LABS: AMORPHOUS SEDIMENT,UR PRESENT /HPF
[2021-06-23 16:49] LABS: BACTERIA,URINE 0 /HPF (0-FEW); RBC,URINE 0 /HPF (0-2); WBC,URINE 0 /HPF (0-4)
[2021-06-23] MEDS ORDERED: CEPH500C PO (16:50)
[2021-06-23] MEDS ORDERED: METR-34 PO (16:50)
== END 2021-06-23 16:45 | disposition home or self-care (01) ==
LOC: ER 12:14
DX: O46.92 Antepartum hemorrhage, unspecified, second trimester (principal); O99.332 Smoking (tobacco) complicating pregnancy, second trimester; Z3A.15 15 weeks gestation of pregnancy; Z88.1 Allergy status to other antibiotic agents; Z91.040 Latex allergy status; Z91.013 Allergy to seafood; Z88.8 Allergy status to other drugs, medicaments and biological substances
CPT/HCPCS: 36415; 76815; 80053; 81001; 81025; 84702; 85025; 99284